=== PATIENT | female | born 1990 | race Caucasian/White ===

== ENCOUNTER 2018-08-21 00:47 | Emergency (ER) | payer SELFPAY ==
--- NOTE | 2018-08-21 01:27 | PDOC ---
Attending Attestation - Resident Resident Name: Stefany Ordoñez - ED Attending Attestation I have performed the following: I have examined & evaluated the patient, The case was reviewed & discussed with the resident, I agree w/resident's findings & plan - HPI HPI: 08/21/18 02:35 28-year-old female with pain to the left foot after a fall. Patient cannot fully weight-bear. - Physicial Exam PE: 08/21/18 02:36 agree with resident exam - Medical Decision Making 08/21/18 02:37 28-year-old female with left foot pain status post fall X-rays consistent with a proximal fifth metatarsal fracture Posterior splint applied and crutches provided N/V in tact Patient will follow up with orthopedics both here and in [place] as she returns home on Saturday
[2018-08-21] MEDS ORDERED: ACETAMINOPHEN 325 MG TABLET (FP) PO ONE (01:28)
[2018-08-21 01:31] VITALS: BP 120/77; PULSE 74; TEMP 98.1; BMI 24.3
--- NOTE | 2018-08-21 01:32 | PDOC ---
History of Present Illness - General Chief Complaint: Injury Stated Complaint: FALL Time Seen by Provider: 08/21/18 01:20 - History of Present Illness Initial Comments: Bebe Lombardo is an otherwise healthy 28yo woman who presents with a left foot injury. She reports that she was on an airport transfer bus out to the airplane in the [facility], and she slipped sideways off onto the ground. She landed directly on the side of her left foot. She was unable to walk on the foot following the incident. She applied ice to her foot while on the plane, and she took ibuprofen for the pain with some improvement. However, she was still unable to bear weight at all on arrival back to [place]. She presented directly to the ED from the airport. Past History - Past Medical History Allergies/Adverse Reactions: Allergies Allergy/AdvReac Type Severity Reaction Status Date / Time No Known Allergies Allergy Verified 08/21/18 01:32 COPD: No - Suicide/Smoking/Psychosocial Hx Smoking History: Never smoked Review of Systems - Review of Systems Comments:: General: No fevers, no chills, no weight or appetite change, no malaise HEENT: No changes in vision, no changes in hearing, no congestion, no sore throat CV: No chest pain, no palpitations, no LE edema Pulm: No SOB, no cough, no wheezing GI: No nausea or vomiting, no change in bowel habits, no melena : No frequency, no urgency, no dysuria Musc: See HPI Skin: No rash, no lesions, no erythema Endo: No excessive thirst, no heat/cold intolerance Heme: No unusual bruising or bleeding, no swollen glands Neuro: No syncope, no numbness/tingling, no focal weakness Vasc: No claudication Psych: No recent change in mood, no SI or HI *Physical Exam - Vital Signs Last Vital Signs Temp Pulse Resp BP Pulse Ox 98.1 F 74 18 120/77 98 08/21/18 01:14 08/21/18 01:14 08/21/18 01:14 08/21/18 01:14 08/21/18 01:14 - Physical Exam Comments: General: Comfortable, no acute distress HEENT: PERRL, EOMI, MMM, voice normal, normal neck ROM, no LAD Cards: RRR, no murmur appreciated Pulm: Comfortable on room air, clear to auscultation bilaterally Abd: Soft, nontender, nondistended Ext: L foot w/ swelling along lateral aspect with ecchymosis. Extremely TTP over swollen area. Able to wiggle toes, sensation to light Vasc: Extremities WWP. Palpable radial and pedal pulses bilaterally Skin: Normal color, no rashes or lesions Neuro: A&Ox3, CN grossly intact, normal speech, motor/sensory grossly intact and symmetric Psych: Mood appropriate to situation ED Treatment Course - RADIOLOGY Radiology Studies Ordered: Category Date Time Status FOOT-LEFT [RAD] Stat Radiology 08/21/18 01:28 Ordered Medical Decision Making - Medical Decision Making 08/21/18 01:30 Bebe Lombardo is an otherwise healthy 28yo woman who presents with pain, swelling, and bruising to the left lateral foot; she is unable to bear weight. - Concerning for fracture of left lateral midfoot - Xrays left foot - Acetaminophen 08/21/18 02:43 - Nondisplaced fracture of the proximal 5th metatarsal - Posterior splint placed - Pt instructed on use of crutches - Discussed home care, follow up, return precautions at length. Pt states understanding. Will be going back to [place] on Saturday. Will provide with ortho follow up in [place] but also discussed importance of prompt follow up at home. Seen with Dr Kirk. Stefany Ordoñez PGY2 *DC/Admit/Observation/Transfer Diagnosis at time of Disposition: Fracture of 5th metatarsal Qualifiers: Encounter type: initial encounter Fracture type: closed Fracture alignment: nondisplaced Laterality: left Qualified Code(s): S92.355A - Nondisplaced fracture of fifth metatarsal bone, left foot, initial encounter for closed fracture - Discharge Dispostion Disposition: HOME Condition at time of disposition: Stable Decision to Admit order: No - Referrals Referrals: aTmir Infante DO [Staff Physician] - Chano Lucas DO [Staff Physician] - - Patient Instructions Printed Discharge Instructions: DI for Foot Fracture Additional Instructions: Discharge Instructions: You were seen in the emergency department for pain and swelling of the left foot. You were found to have a fracture of the 5th metatarsal bone. The fracture is nondisplaced. A splint was placed in the ED. Home Care and Follow Up: - You may use over the counter medications as needed for pain at home. 650- 1000mg acetaminophen (Tylenol) can be used every 6-8 hours. - Keep your splint in place unless directed otherwise at your ortho follow up. The splint needs to be kept dry. Place a plastic bag over your splint when you shower - Do not put weight on your foot. Use the crutches at all times - Apply ice to your foot as much as possible for the next 2-3 days - Keep your foot elevated above the level of your heart whenever possible. - If your foot becomes numb, blue, or you have diffuculty moving your toes, remove the ELAYNE wrap and cotton wrap. Your foot should return to normal within a few minutes. If it does not, you need to seek immediate care. - You need prompt follow up with orthopedics. You have been given contact information for Jerry Infante and Lance. Try to make an appointment to be seen before you go back to [place]. If you cannot be seen before you leave, you need to find an orthopedic surgeon to see you within the next week. - Seek immediate medical care if you have significant worsening of your symptoms , you have severe or worsening pain, you are unable to wiggle your toes, your toes feel cold or appear blue, or you have any other medical emergency. - Post Discharge Activity
[2018-08-21] MEDS ORDERED: ACETAMINOPHEN 325 MG TABLET (FP) ONE ×2 (01:33)
== END 2018-08-21 03:00 | disposition home or self-care (01) ==
LOC: JER 00:47
PROC: 2W3RX1Z Immobilization of Left Lower Leg using Splint (ICD-10-PCS; principal; 2018-08-21)
DX: S92.355A Nondisplaced fracture of fifth metatarsal bone, left foot, initial encounter for closed fracture (principal); V78.4XXA Person boarding or alighting from bus injured in noncollision transport accident, initial encounter; Y93.89 Activity, other specified; Y92.520 Airport as the place of occurrence of the external cause; Y99.8 Other external cause status
CPT/HCPCS: 73630-TC-LT; 99281-25

== ENCOUNTER 2022-05-20 06:35 | Emergency (ER) | payer BC, OTHER ==
[2022-05-20 06:54] VITALS: BMI 21.2
[2022-05-20] MEDS ORDERED: ONDANSETRON 4 MG/2 ML VIAL IVPUSH ONE (07:45)
[2022-05-20] MEDS ORDERED: SODIUM CHLORIDE 1,000 ML IV STA (07:45)
[2022-05-20] MEDS ORDERED: FAMOTIDINE 20 MG/50 ML IVPB 20 MG/50 ML MG IVPB ONE (07:46)
[2022-05-20] MEDS ORDERED: ACETAMINOPHEN 1000 MG/100 ML BAG IVPB ONE (07:46)
[2022-05-20] MEDS ORDERED: FAMOTIDINE 10 MG/ML VIAL IVPB ONE (07:55)
[2022-05-20] MEDS ORDERED: ACETAMINOPHEN INJECTION 100 ML IVPB ONE (07:55)
[2022-05-20] MEDS ORDERED: ONDANSETRON 4 MG/2 ML VIAL ONE (07:55)
[2022-05-20 08:54] LABS: HEMATOCRIT 38.5 % (32.4-45.2); HEMOGLOBIN 13.6 GM/dL (10.7-15.3); MCH 31.3 pg (25.7-33.7); MCHC 35.4 g/dl (32.0-36.0); MEAN CELL VOLUME 88.5 fl (80-96); MEAN PLT VOLUME 7.8 fl (7.5-11.1); PLATELET COUNT 201 10^3/uL (134-434); RBC 4.35 M/mm3 (3.60-5.2); RDW 12.7 % (11.6-15.6); WHITE BLOOD COUNT 10.1 K/mm3 (4.0-10.0)
[2022-05-20 08:55] LABS: CALCIUM 8.9 mg/dL (8.5-10.1)
[2022-05-20 08:59] LABS: CREATININE 0.8 mg/dL (0.55-1.3)
[2022-05-20 09:01] LABS: BILIRUBIN,TOTAL 0.9 mg/dL (0.2-1); TOT PROT 7.4 g/dl (6.4-8.2)
[2022-05-20 10:17] VITALS: BP 97/67; PULSE 84; RESP 17; TEMP 99.2
[2022-05-20 11:12] LABS: ANISOCYTOSIS 0; MACROCYTOSIS 0
== END 2022-05-20 10:45 | disposition home or self-care (01) ==
LOC: JER 06:35
PROC: 3E033GC Introduction of Other Therapeutic Substance into Peripheral Vein, Percutaneous Approach (ICD-10-PCS; principal; 2022-05-20)
PROC: 3E033GC Introduction of Other Therapeutic Substance into Peripheral Vein, Percutaneous Approach (ICD-10-PCS; 2022-05-20)
PROC: 3E033GC Introduction of Other Therapeutic Substance into Peripheral Vein, Percutaneous Approach (ICD-10-PCS; 2022-05-20)
DX: A08.4 Viral intestinal infection, unspecified (principal); R11.2 Nausea with vomiting, unspecified; R19.7 Diarrhea, unspecified; R10.13 Epigastric pain; Z20.822 Contact with and (suspected) exposure to COVID-19
CPT/HCPCS: 0241U-QW; 36415; 80053; 84703; 85025; 99284-25